=== PATIENT | male | born 1975 | race Caucasian/White ===

== ENCOUNTER 2020-12-28 20:11 | Emergency (ER) | payer BC ==
[~2020-12-28] VITALS: Ht 177.8 cm; Wt 75.0 kg
--- OUTSIDE RECORDS SUMMARY | 2020-12-28 20:19 | XMS REPORT | Encounter Summary ---
Author Author [facility] Organization [facility] Address Unknown Phone Unavailable Care Team Providers Care Lead Etl Developer Name Role Phone PCP Unavailable Reason for Visit * Reason Comments Medication Refill Encounter Details Care Team Description Date Type Department Shay Nieves MD [address] [facility] [address] [place] [address] Medication Refill 12/12/2020 [facility]ill [facility] [address] [facility] [address] [place] [address] Social History Date Tobacco Use Types Packs/Day Years Used Never Smoker Smokeless Tobacco: Current User Sex Assigned at Date Recorded Not on file documented as of this encounter Plan of Treatment Not on filedocumented as of this encounter Visit Diagnoses Diagnosis Myalgia Unspecified myalgia and myositis Chronic bilateral low back pain without sciatica Sacroiliitis (HCC) Sacroiliitis, not elsewhere classified documented in this encounter
--- OUTSIDE RECORDS SUMMARY | 2020-12-28 20:19 | XMS REPORT | Encounter Summary ---
Author Author [facility] Organization [facility] Address Unknown Phone Unavailable Care Team Providers Care Instructional Services Specialist Name Role Phone PCP Unavailable Reason for Visit * Reason Onset Date Comments Medication Refill 11/29/2020 Encounter Details Care Team Description Date Type Department Shay Nieves MD [address] [facility] [address] [place] [address] [phone] Medication Refill 11/29/2020 [facility] [address] [place], [place] [id number] Social History Date Tobacco Use Types Packs/Day Years Used Never Smoker Smokeless Tobacco: Current User Sex Assigned at Date Recorded Not on file documented as of this encounter Miscellaneous Notes * Telephone Encounter - Stephani Chi MA - 11/29/2020 10:10 AM CDT ----- Message from Thu Mayer sent at 11/29/2020 9:50 AM CDT ----- Regardin Med refill Need 2 RX refill - pain med and muscle relaxer [phone] documented in this encounter Plan of Treatment Not on filedocumented as of this encounter Visit Diagnoses Diagnosis Myalgia Unspecified myalgia and myositis Chronic bilateral low back pain without sciatica Sacroiliitis (HCC) Sacroiliitis, not elsewhere classified documented in this encounter
--- OUTSIDE RECORDS SUMMARY | 2020-12-28 20:19 | XMS REPORT | Encounter Summary ---
Author Author [facility] Organization [facility] Address Unknown Phone Unavailable Care Team Providers Care Automatic Grinding Machine Operator Name Role Phone PCP Unavailable Encounter Details Care Team Description Date Type Department Shay Nieves MD [address] [facility] [address] [place] [address] 11/22/2020 Documentation [facility] [address] [facility] [address] [place] [address] Social History Date Tobacco Use Types Packs/Day Years Used Never Smoker Smokeless Tobacco: Current User Sex Assigned at Date Recorded Not on file documented as of this encounter Plan of Treatment Not on filedocumented as of this encounter Visit Diagnoses Not on filedocumented in this encounter
--- OUTSIDE RECORDS SUMMARY | 2020-12-28 20:19 | XMS REPORT | Clinical Summary ---
Author Author [facility] Organization [facility] Address Unknown Phone Unavailable Care Team Providers Care Alarm Installer Name Role Phone No Pcp, Na PCP Unavailable Source Comments Some departments are not documenting in the electronic medical record. If you d o not see the information that you expected, contact Release of Information in [facility] Health Information Management department at [phone] for further assistan ce in locating additional records.[facility] Allergies Comments Active Allergy Reactions Severity Noted Date Was told he was allergic to it when he was a kid Penicillins SEE COMMENTS Low 06/10/2018 Medications No known medications Active Problems Problem Noted Date Chronic midline back pain 06/15/2018 Surgical History Surgery Date Site/Laterality Comments ELBOW SURGERY Right FOREARM SURGERY Right WRIST SURGERY Medical History Medical History Date Comments Essential hypertension Social History Date Tobacco Use Types Packs/Day Years Used Never Smoker Smokeless Tobacco: Chew Current User Comments Alcohol Use Standard Drinks/Week rarely Yes 0 (1 standard drink = 0.6 o z pure alcohol) Alcohol Habits Answer Date Recorded How often do you have a drink containing alcohol? No t asked How many drinks containing alcohol do you have on No t asked a typical day when you are drinking? How often do you have six or more drinks on one Not asked occasion? Comment: rarely 06/15/2018 Sex Assigned at Date Recorded Not on file Last Filed Vital Signs Reading Time Taken Comments Vital Sign 132/99 06/15/2018 3:25 PM ROD WELDER Blood Pressure 112 06/15/2018 2:38 PM ROD WELDER Pulse - - Temperature - - Respiratory Rate 92% 06/15/2018 2:38 PM ROD WELDER Oxygen Saturation - - Inhaled Oxygen Concentration 90 kg (198 lb 6.4 oz) 06/15/2018 2:38 PM ROD WELDER Weight 176 cm (5' 9.29") 06/15/2018 2:38 PM ROD WELDER Height 29.05 06/15/2018 2:38 PM ROD WELDER Body Mass Index Plan of Treatment Health Maintenance Due Date Last Done Comments HIV SCREENING 1988 DTAP/TDAP VACCINES (1 - 1991 Tdap) HEPATITIS C SCREENING 1991 PHYSICAL (COMPREHENSIVE) 1991 EXAM INFLUENZA VACCINE 01/25/2021 Results Not on filefrom Last 3 Months Insurance Type Payer Benefit Subscriber ID Effective Phone Address Plan / Dates Group Indemnity WORKERS COMP GENERIC [id number] 2018 WORK COMP 1 -Present Matias Wilson Personal/F Self 1975 [phone] [place] (Home) [place] [id number] Advance Directives 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
--- NOTE | 2020-12-28 20:45 | ED Lower Extremity ---
General Stated Complaint: L LEG PAIN, TENDER TO TOUCH Source: patient Exam Limitations: no limitations History of Present Illness Date Seen by Provider: Dec 28, 2020 Time Seen by Provider: 20:30 Initial Comments Patient is a 45-year-old male who presents to the emergency department today with a chief complaint of left leg pain. Patient states pain has been ongoing for the last week or so. He has been using a heating pad to try and alleviate symptoms. He states that he has noticed some prominence in his left lower leg veins recently and it hurts to dorsiflex his foot. Patient states that he woke up this morning and feels a little short of breath like it is difficult to get a good deep breath. He denies any Covid concerns, cough, fever, loss of taste or smell. He does not believe he has had an exposure. He is not vaccinated. He denies chest pain. He does report a history of about a 12 to 13-hour car trip a month ago to go see one of his children in [facility]. No personal history of blood clot. Family history is unknown as he is adopted. He denies significant swelling to the left lower extremity but states it is tender to touch in the posterior calf and behind the knee occasionally radiating up into the left medial thigh. He has no chronic medical problems. Takes only a small muscle relaxer on an as- needed basis. No history of smoking. No history of exposure to smoke or fumes or chemicals. Tells me that his pulse ox at home has been reading in the upper 80s low 90s for "months". And he has been tachycardic for quite a while as far as he knows. All other review of systems reviewed and negative except as stated above. Onset: last week Severity: moderate Pain/Injury Location: left leg Method of Injury: unknown Modifying Factors: Improves With Other (Heat therapy) Allergies and Home Medications Allergies Coded Allergies: No Known Drug Allergies (Unverified , 12/28/20) Patient Home Medication List Home Medication List Reviewed: Yes Apixaban (Eliquis) 5 Mg Tablet, 5 MG PO BID Prescribed by: ARON RAND on 12/28/20 0365 Hydrocodone/Acetaminophen (Hydrocodone-Acetamin 5-325 mg) 1 Each Tablet, 1 TAB PO Q6H PRN for PAIN-MODERATE (5-7) Prescribed by: ARON RAND on 12/28/20 2218 Review of Systems Constitutional: see HPI EENTM: no symptoms reported Respiratory: short of breath (Very mild) Cardiovascular: no symptoms reported Gastrointestinal: no symptoms reported Genitourinary: no symptoms reported Musculoskeletal: other (Left lower leg pain) Skin: no symptoms reported Psychiatric/Neurological: No Symptoms Reported All Other Systems Reviewed Negative Unless Noted: Yes Physical Exam Vital Signs Vital Signs - First Documented 12/28/20 20:23 Temp 36.7 Pulse 152 Resp 20 B/P (MAP) 133/97 (109) Pulse Ox 95 Capillary Refill : Height, Weight, BMI Height: '" Weight: lbs. oz. kg; BMI Method: General Appearance: WD/WN, no apparent distress HEENT: normal ENT inspection Neck: full range of motion Cardiovascular: regular rate, rhythm, tachycardia, other (Distal pulses intact) Respiratory: lungs clear, normal breath sounds, no respiratory distress, no accessory muscle use Gastrointestinal: other (No lymphadenopathy noted in the left groin) Hips: bilateral hip non-tender, bilateral hip normal inspection, bilateral hip normal range of motion, bilateral hip no evidence of injury Legs: left leg limited range of motion, left leg soft tissue tenderness Knees: bilateral knee non-tender, bilateral knee normal inspection, bilateral knee normal range of motion, bilateral knee no evidence of injury; left knee other (Tenderness in the popliteal space) Ankles: left ankle limited range of motion (Pain with dorsiflexion of the left) Neurologic/Tendon: normal sensation, normal motor functions, normal tendon functions Neurologic/Psychiatric: alert, normal mood/affect, oriented x 3 Skin: normal color, warm/dry Progress/Results/Core Measures Results/Orders Lab Results Laboratory Tests Test 12/28/20 20:50 Range/Units White Blood Count 11.0 4.3-11.0 10^3/uL Red Blood Count 5.82 H 4.30-5.52 10^6/uL Hemoglobin 17.9 H 13.3-17.7 g/dL Hematocrit 51 40-54 % Mean Corpuscular Volume 88 80-99 fL Mean Corpuscular Hemoglobin 31 25-34 pg Mean Corpuscular Hemoglobin Concent 35 32-36 g/dL Red Cell Distribution Width 12.7 10.0-14.5 % Platelet Count 370 130-400 10^3/uL Mean Platelet Volume 9.1 9.0-12.2 fL Immature Granulocyte % (Auto) 2 % Neutrophils (%) (Auto) 57 42-75 % Lymphocytes (%) (Auto) 30 12-44 % Monocytes (%) (Auto) 10 0-12 % Eosinophils (%) (Auto) 1 0-10 % Basophils (%) (Auto) 1 0-10 % Neutrophils # (Auto) 6.3 1.8-7.8 10^3/uL Lymphocytes # (Auto) 3.3 1.0-4.0 10^3/uL Monocytes # (Auto) 1.1 H 0.0-1.0 10^3/uL Eosinophils # (Auto) 0.1 0.0-0.3 10^3/uL Basophils # (Auto) 0.1 0.0-0.1 10^3/uL Immature Granulocyte # (Auto) 0.2 H 0.0-0.1 10^3/uL D-Dimer 1.17 H 0.00-0.49 UG/ML Sodium Level 135 135-145 MMOL/L Potassium Level 4.2 3.6-5.0 MMOL/L Chloride Level 97 L 98-107 MMOL/L Carbon Dioxide Level 19 L 21-32 MMOL/L Anion Gap 19 H 5-14 MMOL/L Blood Urea Nitrogen 12 7-18 MG/DL Creatinine 0.95 0.60-1.30 MG/DL Estimat Glomerular Filtration Rate 85 BUN/Creatinine Ratio 13 Glucose Level 255 H 70-105 MG/DL Calcium Level 10.3 H 8.5-10.1 MG/DL Corrected Calcium 10.0 8.5-10.1 MG/DL Total Bilirubin 1.0 0.1-1.0 MG/DL Aspartate Amino Transf (AST/SGOT) 25 5-34 U/L Alanine Aminotransferase (ALT/SGPT) 24 0-55 U/L Alkaline Phosphatase 79 40-136 U/L Total Protein 8.9 H 6.4-8.2 GM/DL Albumin 4.4 3.2-4.5 GM/DL My Orders Orders - ARON RAND MD Ekg Tracing (12/28/20 20:41) Chest 1 View, Ap/Pa Only (12/28/20 20:41) Ed Iv/Invasive Line Start (12/28/20 20:45) Ns Iv 1000 Ml (Sodium Chloride 0.9%) (12/28/20 21:15) Ct Angio Chest W (12/28/20 21:13) Rx-Hydrocodone/Apap 5-325 Mg (Rx-Vicodin (12/28/20 22:30) Apixaban Tablet (Eliquis Tablet) (12/28/20 22:20) Vital Signs/I&O 12/28/20 20:23 Temp 36.7 Pulse 152 Resp 20 B/P (MAP) 133/97 (109) Pulse Ox 95 Progress Progress Note : Time: 22:08 Progress Note Long discussion with patient regarding positive findings on CT angiography of the chest. Patient is noted to have bilateral pulmonary emboli with a large 1 in the right main pulmonary artery. Patient remains tachycardic at 130. Oxygen saturations are 94 to 95% on room air without any increased work of breathi ng/labored breathing. Blood pressure is good. Patient's labs have been reviewed he is found to be hyperglycemic with a mild increased anion gap. CO2 is slightly low as well. Patient has been fluid resuscitated with a liter of normal saline. He adamantly insists on going home. He states he does not want to stay in the hospital. Patient is counseled on worst-case scenario including worsening blood clot, worsening shortness of breath, hypoxia and possible . He states he would prefer to go home in spite of all these risks. I offered ICU overnight admission for monitoring on blood thinners. He tells me know he wants to go home. Son is at the bedside and does not really provide much in the way of support for admission. Patient will be started on Eliquis here in the emergency department and sent with a prescription to his [facility] pharmacy. He is given good return precautions which include any chest pain, shortness of breath, syncopal episodes he needs to come right back to the emergency department. He requests physician referral information. I have strongly encouraged him to follow-up this week. Patient will be discharged home with Eliquis and those return precautions. All questions are sought and answered. Initial ECG Impression Date: Dec 28, 2020 Initial ECG Impression Time: 20:55 Initial ECG Rate: 139 Initial ECG Rhythm: S.Tach Initial ECG Intervals: Normal Initial ECG Impression: Nonspecific Changes Initial ECG Comparisson: No Previous ECG Available Diagnostic Imaging Diagonstic Imaging: Xray, CT Plain Films/CT/US/NM/MRI: chest Comments [facility] [place] [place] NAME: TOM ARMSTRONG [facility] REC#: [id number] PT STATUS: REG ER : 1975 PHYSICIAN: ARON RAND MD ADMIT DATE: 12/28/20/ER Signed Date of Exam:12/28/20 CHEST 1 VIEW, AP/PA ONLY CHEST 1 VIEW, AP/PA ONLY Indication: Tachycardia Comparison: None available. Findings: No focal airspace disease in the visualized lungs. Please note that the posterior lower lobes are poorly evaluated by portable radiography. No pleural effusion or pneumothorax. Normal cardiomediastinal silhouette. Impression: 1. No acute cardiopulmonary process by portable radiography. Dictated by: Dictated on workstation # [id number] Dict: 12/28/202115 Trans: 12/28/202115 [facility] [id number] Interpreted by: YOLY NORWOOD MD Electronically signed by: YOLY NORWOOD MD 12/28/202115 CTA Chest: bilateral pulmonary emboli's with large clot in right pulmonary artery [facility] [place] NAME: TOM ARMSTRONG [facility] REC#: [id number] PT STATUS: REG ER : 1975 PHYSICIAN: ARON RAND MD ADMIT DATE: 12/28/20/ER Draft Date of Exam:12/28/20 CT ANGIO CHEST W PROCEDURE: CT angiography of the chest with contrast. TECHNIQUE: Multiple contiguous axial images were obtained through the chest after uneventful bolus administration of intravenous contrast. 3D reconstructed CTA MIP acquisitions were also performed. Auto Exposure Controls were utilized during the CT exam to meet ALARA standards for radiation dose reduction. INDICATION: Chest pain, shortness of air, left leg pain and elevated d-dimer. EXAMINATION: CT of the chest with contrast, 12/28/2020. FINDINGS: There is diffuse thrombus throughout the mid and distal right main pulmonary artery which extends throughout the branches of the right lower lobe. Thrombus extends into the branches of the right upper lobe and right middle lobe. Minimal thrombus is seen within the far peripheral branches of the left lower lobe minimal thrombus is seen within a few of the branches of the left upper lobe. No evidence for saddle embolus. The thoracic aorta is unremarkable. There are diffuse scattered peripheral airspace opacities throughout both lungs which could represent infiltrates with developing pulmonary infarcts not excluded. A few calcified granulomata noted throughout both lungs. No pneumothorax. No pericardial or pleural effusion. Visualized upper abdomen demonstrates diffuse fatty infiltration throughout the liver with focal fatty sparing adjacent to the gallbladder. Remaining visualized upper abdominal structures demonstrate no acute abnormality. There is no acute osseous abnormality. IMPRESSION: 1. Multiple bilateral peripheral pulmonary emboli involving most lobes with embolus in the right main pulmonary artery, as described above. 2. Diffuse patchy airspace opacities throughout both lungs which could represent infiltrates with pulmonary infarcts not excluded. Other findings as described above. Findings will be called to Aron Rand by Dr. Ruth 12/29/2019 at 10:00 PM. Dictated on workstation # [id number] Dict: 12/28/20 2156 Trans: 12/28/20 2208 [facility] [id number] Interpreted by: ARUN RUTH MD Electronically signed by: Departure Impression Primary Impression: Pulmonary embolism, bilateral Additional Impression: Hyperglycemia Disposition: 01 HOME, SELF-CARE Condition: Stable Departure-Patient Inst. Decision time for Depature: 22:11 Referrals: NO,LOCAL PHYSICIAN (PCP/Family) Primary Care Physician Patient Instructions: LOCAL PHYSICIAN LIST, Pulmonary Embolism (Blood Clot in the Lungs) Add. Discharge Instructions: continue to take the ELIQUIS 10mg by mouth for the fist 7 days and then 5mg twice a day until you are taken off by your primary doctor. Hydrocodone 5mg tablets, 1 pills every 6 hours as needed for pain. Do not take ibuprofen products as these can increase the bleeding risk while on Eliquis. Return to the Emergency Department for any worsening shortness of breath, chest pain, passing out spells or other emergent, concerning symptoms. I have given you a referral list of local physicians. please call and follow up with a doctor this week. Scripts Hydrocodone/Acetaminophen (Hydrocodone-Acetamin 5-325 mg) 1 Each Tablet 1 TAB PO Q6H PRN for PAIN-MODERATE (5-7), #15 TAB Prov: ARON RAND MD 12/28/20 Apixaban (Eliquis) 5 Mg Tablet 5 MG PO BID for 30 Days, #72 TAB TAKE 2 TABLETS BID X 7 DAYS, THEN 1 TABLET BID Prov: ARON RAND MD 12/28/20 ARON RAND MD Dec 28, 2020 20:45
[2020-12-28 20:56] LABS: BASOPHILS # (AUTO) 0.1 10^3/uL (0.0-0.1); BASOPHILS % (AUTO) 1 % (0-10); EOSINOPHILS # (AUTO) 0.1 10^3/uL (0.0-0.3); EOSINOPHILS % (AUTO) 1 % (0-10); HEMATOCRIT 51 % (40-54); HEMOGLOBIN 17.9 g/dL (13.3-17.7); LYMPHOCYTES # (AUTO) 3.3 10^3/uL (1.0-4.0); LYMPHOCYTES % (AUTO) 30 % (12-44); MEAN CORPUSCULAR HEMOGLOBIN 31 pg (25-34); MEAN CORPUSCULAR HGB CONC 35 g/dL (32-36); MEAN CORPUSCULAR VOLUME 88 fL (80-99); MEAN PLATELET VOLUME 9.1 fL (9.0-12.2); MONOCYTES # (AUTO) 1.1 10^3/uL (0.0-1.0); MONOCYTES % (AUTO) 10 % (0-12); NEUTROPHILS # (AUTO) 6.3 10^3/uL (1.8-7.8); NEUTROPHILS % (AUTO) 57 % (42-75); PLATELET COUNT 370 10^3/uL (130-400)
[2020-12-28 21:06] LABS: ALBUMIN 4.4 GM/DL (3.2-4.5); POTASSIUM 4.2 MMOL/L (3.6-5.0)
[2020-12-28 21:07] LABS: CALCIUM 10.3 MG/DL (8.5-10.1)
[2020-12-28 21:08] LABS: TOTAL PROTEIN 8.9 GM/DL (6.4-8.2)
[2020-12-28 21:12] LABS: CREATININE SERUM 0.95 MG/DL (0.60-1.30)
[2020-12-28] MEDS ORDERED: NS IV 1000 ML 1,000 ML IV SCH (21:15)
--- NOTE | 2020-12-28 21:17 | Diagnostic Imaging Report ---
CHEST 1 VIEW, AP/PA ONLY Indication: Tachycardia Comparison: None available. Findings: No focal airspace disease in the visualized lungs. Please note that the posterior lower lobes are poorly evaluated by portable radiography. No pleural effusion or pneumothorax. Normal cardiomediastinal silhouette. Impression: 1. No acute cardiopulmonary process by portable radiography. Dictated by: Dictated on workstation # [id number]
--- NOTE | 2020-12-28 22:09 | Diagnostic Imaging Report ---
PROCEDURE: CT angiography of the chest with contrast. TECHNIQUE: Multiple contiguous axial images were obtained through the chest after uneventful bolus administration of intravenous contrast. 3D reconstructed CTA MIP acquisitions were also performed. Auto Exposure Controls were utilized during the CT exam to meet ALARA standards for radiation dose reduction. INDICATION: Chest pain, shortness of air, left leg pain and elevated d-dimer. EXAMINATION: CT of the chest with contrast, 12/28/2020. FINDINGS: There is diffuse thrombus throughout the mid and distal right main pulmonary artery which extends throughout the branches of the right lower lobe. Thrombus extends into the branches of the right upper lobe and right middle lobe. Minimal thrombus is seen within the far peripheral branches of the left lower lobe minimal thrombus is seen within a few of the branches of the left upper lobe. No evidence for saddle embolus. The thoracic aorta is unremarkable. There are diffuse scattered peripheral airspace opacities throughout both lungs which could represent infiltrates with developing pulmonary infarcts not excluded. A few calcified granulomata noted throughout both lungs. No pneumothorax. No pericardial or pleural effusion. Visualized upper abdomen demonstrates diffuse fatty infiltration throughout the liver with focal fatty sparing adjacent to the gallbladder. Remaining visualized upper abdominal structures demonstrate no acute abnormality. There is no acute osseous abnormality. IMPRESSION: 1. Multiple bilateral peripheral pulmonary emboli involving most lobes with embolus in the right main pulmonary artery, as described above. 2. Diffuse patchy airspace opacities throughout both lungs which could represent infiltrates with pulmonary infarcts not excluded. Other findings as described above. Findings will be called to Roseann Lebron by Dr. Ruth 12/29/2019 at 10:00 PM. Dictated by: Dictated on workstation # [id number]
[2020-12-28] MEDS ORDERED: APIX5TAB PO (22:17)
[2020-12-28] MEDS ORDERED: ACHD5005 PO (22:18)
[2020-12-28] MEDS ORDERED: APIXABAN 5 MG (ELIQUIS) TABLET PO STA (22:20)
[2020-12-28 22:48] VITALS: BP 119/87
== END 2020-12-28 22:46 | disposition home or self-care (01) ==
LOC: EDUNIT# 20:11 → ER 20:15
DX: I26.99 Other pulmonary embolism without acute cor pulmonale (principal); R73.9 Hyperglycemia, unspecified
CPT/HCPCS: 36415; 71045; 71275; 80053; 85025; 85379; 93005